=== PATIENT | male | born 1935 | race Hispanic/Latino ===

== ENCOUNTER → 2019-05-10 | Outpatient (CLI) | payer OTHER ==
[~2019-05-10] MED LIST: ALLO100T PO; DIATR MEGLU/DIATRIZOATE SODIUM 30 ML BOTTLE ONE; GLIP5TAB11 PO; LEVO500T89 PO; SITA100T12 PO
== END | disposition home or self-care (01) ==
LOC: RAH 10:05
PROVIDERS: ATTEND Internal Medicine Gastroenterology
DX: K94.20 Gastrostomy complication, unspecified (principal)
CPT/HCPCS: 74018; Q9963

== ENCOUNTER 2025-09-06 18:05 | Emergency (ER) | payer OTHER, MEDICARE ==
[~2025-09-06] VITALS: Ht 182.9 cm; Wt 71.2 kg
[~2025-09-06 18:05] MED LIST changes: -DIATR MEGLU/DIATRIZOATE SODIUM 30 ML BOTTLE ONE; -GLIP5TAB11 PO; +GLIP5TAB15 PO; +LEVO-70 PO; -LEVO500T89 PO
--- NOTE | 2025-09-06 18:14 | ERN ---
ED Note History of Present Illness Stated Complaint: COUGH AND FEVER Chief Complaint: Cough Time Seen by MD: 18:09 Dictation: PATIENT IS AN 89-YEAR-OLD MALE HERE WITH HIS GRANDDAUGHTER WITH COMPLAINTS OF FEVER CHILLS DRY COUGH AND MILD SOB FOR THE LAST 3-4 DAYS. NO NAUSEA VOMITING NO DIARRHEA NO LOSS OF TASTE OR SMELL. PATIENT WAS TAKEN TO A LOCAL URGENT CARE AND WAS DIAGNOSED WITH INFLUENZA TWO DAYS AGO AND WAS PRESCRIBED BROMFED ONLY NO TAMIFLU WAS PRESCRIBED. PATIENT IS HERE NOW FOR A BETTER OPINION. Allergies: Coded Allergies: No Known Drug Allergies (Verified Allergy, Unknown, 07/18/18) Home Meds Reported Medications Allopurinol (Allopurinol) 100 Mg Tablet, 100 MG PO DAILY, TAB 07/18/18 Levofloxacin (Levofloxacin) 500 Mg Tablet, 500 MG PO DAILY, TAB 07/18/18 Glipizide (Glipizide) 5 Mg Tablet, 5 MG PO BIDAC, TAB 07/18/18 Sitagliptin Phosphate (Januvia) 100 Mg Tablet, 100 MG PO DAILY, TAB 07/18/18 Past Medical History RN Note Reviewed/Agreed w/PFSH: Yes Review of System Dictation CONSTITUTIONAL: NEGATIVE EXCEPT FOR HPI FEVER CHILLS HEAD/FACE: NEGATIVE EXCEPT FOR HPI EENT: NEGATIVE EXCEPT FOR HPI RESPIRATORY: NEGATIVE EXCEPT FOR HPI COUGH/SOB GASTROINTESTINAL/ABDOMINAL: NEGATIVE EXCEPT FOR HPI GENITOURINARY: NEGATIVE EXCEPT FOR HPI MUSCULOSKELETAL: NEGATIVE EXCEPT FOR HPI INTEGUMENTARY: NEGATIVE EXCEPT FOR HPI NEUROLOGICAL/PSYCH: NEGATIVE EXCEPT FOR HPI HEMATOLOGIC/LYMPHATIC: NEGATIVE EXCEPT FOR HPI ALL SYSTEMS NEGATIVE, EXCEPT NOTED ABOVE. 13 POINT REVIEW OF SYSTEMS ASSESSED AND ALL NEGATIVE EXCEPT FOR ABOVE. Initial Vital Sign VS Vital Signs Date Time Temp Pulse Resp B/P (MAP) Pulse Ox O2 Delivery O2 Flow Rate FiO2 09/06/25 18:09 99.7 93 20 154/58 94 Room Air 09/06/25 19:04 0 21 Physical Exam Dictation VITAL SIGNS REVIEWED GENERAL APPEARANCE: ALERT, ORIENTED X 3, N MILD ACUTE DISTRESS, WELL DEVELOPED, NOURISHED. HEAD AND FACE: NON-TRAUMATIC. EYES: PERRL, PINK CONJUNCTIVAS, EYELID NO TRAUMA, ANTERIOR CHAMBER WITH ARCUS SENILIS. EARS: PINNAS INTACT AND NO SIGNS OF TRAUMA OR ERYTHEMA EAR CANALS CLEAR AND NO DISCHARGE TM NO ERYTHEMA NOSE: NO DISCHARGE, NO BLEEDING. OROPHARYNX: MOUTH NORMAL, TONGUE PINK, PHARYNX CLEAR,NO ERYTHEMA, TONSILS NO EXUDATES, NO ABSCESSES NOTED, MUCOUS MEMBRANE MOIST NECK: SUPPLE, NON-TENDER, NO THYROMEGALY, NO MASSES, NO JVD, NO BRUITS BREAST:DEFERRED CHEST:NO TENDERNESS, NO CREPITUS, NO PARADOXICAL MOVEMENT, NO RETRACTIONS LUNGS:CLEAR, WELL-VENTILATED, SYMMETRIC, NO RALES, NO WHEEZING, NO RHONCHI, NO STRIDOR, GOOD BREATH SOUNDS BILATERALLY NO TACHYPNEA OR RETRACTIONS. DRY COUGH NOTED HEART: REGULAR RATE, REGULAR RHYTHM, NO MURMUR, NO GALLOPS VASCULAR: NO PERIPHERAL EDEMA, ABDOMEN: SOFT, POSITIVE BOWEL SOUNDS, NONDISTENDED, NO GUARDING, NONTENDER, NO REBOUND, NO MASSES NO HEPATOMEGALY, NO SPLENOMEGALY, NO WHITTEN'S SIGN, NO HERNIAS. RECTAL: DEFERRED GENITAL: DEFERRED NEUROLOGICAL: NORMAL SPEECH, MOTOR FUNCTION INTACT, SENSORY FUNCTION INTACT MUSCULOSKELETAL: NECK NONTENDER, FULL RANGE OF MOTION, BACK NONTENDER, FULL RANGE OF MOTION, EXTREMITIES: NONTENDER, FULL RANGE OF MOTION SKIN: COLOR PINK, DRY, NO TURGOR, NO RASH, NO LACERATIONS, NO ABRASIONS, NO CONTUSIONS. LYMPHATIC: DEFERRED Results (Laboratory/Radiology) Laboratory/Radiology Laboratory Tests Test 09/06/25 18:27 09/06/25 18:49 White Blood Count 8.6 K/uL (4.8-10.8) Red Blood Count 4.43 MIL/uL (4.50-6.20) L Hemoglobin 13.0 g/dL (14.0-18.0) L Hematocrit 38.4 % (42-54) L Mean Corpuscular Volume 86.7 fL (79-99) Mean Corpuscular Hemoglobin 29.3 pg (27.0-33.0) Mean Corpuscular Hemoglobin Concent 33.9 g/dL (32.0-36.0) Red Cell Distribution Width 13.9 % (11.0-15.5) Platelet Count 168 K/uL (130-400) Mean Platelet Volume 10.2 fL (7.5-10.5) Immature Granulocyte % (Auto) 0.9 % (0-1) Neutrophils (%) (Auto) 73.7 % (40.0-77.0) Lymphocytes (%) (Auto) 11.5 % (21.0-51.0) L Monocytes (%) (Auto) 12.9 % (3.0-13.0) Eosinophils (%) (Auto) 0.8 % (0.0-8.0) Basophils (%) (Auto) 0.2 % (0.0-5.0) Neutrophils # (Auto) 6.3 K/uL (1.8-7.7) Lymphocytes # (Auto) 1.0 K/uL (1.0-4.8) Monocytes # (Auto) 1.1 K/uL (0.1-1.0) H Eosinophils # (Auto) 0.07 K/uL (0.00-0.70) Basophils # (Auto) 0.02 K/uL (0.00-0.20) Absolute Immature Granulocyte (auto 0.08 K/uL (0-1) Nucleated Red Blood Cells 0.0 % (0.0-0.19) Sodium Level 138 mmol/L (136-145) Potassium Level 4.0 mmol/L (3.5-5.1) Chloride Level 102 mmol/L (101-111) Carbon Dioxide Level 24 mmol/L (21-32) Blood Urea Nitrogen 12 mg/dL (7-18) Creatinine 0.9 mg/dL (0.5-1.3) Glomerular Filtration Rate Calc 82 mL/min (>90) Random Glucose 175 mg/dL (70-105) H Lactic Acid Level 2.0 mmol/L (0.8-2.5) Total Calcium 8.9 mg/dL (8.5-10.1) Troponin I High Sensitivity 15 ng/L (4-75) B-Type Natriuretic Peptide 586 pg/mL (0-100) H Influenza Type A Antigen Negative For Type A Influenza Type B Antigen Negative For Type B SARS-CoV-2 Antigen (Rapid) PRESUMPTIVE NEGATIVE 1915/CHEST X-RAY NEGATIVE Labs Reviewed?: Yes EKG Comment: 1820/EKG SINUS RHYTHM/HEART RATE 92/AXIS NORMAL/NONSPECIFIC CHANGES ANTEROLATERAL LEADS/CHRONIC ED Course ED Course Orders Procedure Category Date Status Time Blood Cult MICKEY 09/06/25 In Process 18:12 Lactic Acid LAB 09/06/25 Complete 18:12 B-Type Natriuretic LAB 09/06/25 Complete Peptide 18:12 Covid19 (Sars Antigen LAB 09/06/25 Complete Rapid) 18:12 Influenza Type A & B, LAB 09/06/25 Complete Rapid 18:12 Cbc With Differential LAB 09/06/25 Complete 18:12 Troponin I High LAB 09/06/25 Complete Sensitivity 18:12 12 Lead Ekg Tracing- EKG 09/06/25 Resulted Technical 18:12 Chest 1vw RAD 09/06/25 Resulted 18:12 Basic Metabolic Panel LAB 09/06/25 Complete 18:12 Dexamethasone 4mg/Ml PHA 09/06/25 Complete 1ml Vial (Dexametha 19:30 Furosemide 100mg Vial PHA 09/06/25 Complete (Lasix 100mg Vial) 19:30 Current Medications Medications (Trade) Dose Ordered Sig/James Route PRN Reason Start Time Stop Time Status Last Admin Dose Admin Dexamethasone Sodium Phosphate (dexaMETHasone 4MG/ML 1ML VIAL) 8 mg ONCE ONCE IVP 09/06/25 19:30 09/06/25 19:31 DC 09/06/25 19:31 Furosemide (LASix 100MG VIAL) 80 mg ONCE ONCE IVP 09/06/25 19:30 09/06/25 19:33 DC 09/06/25 19:34 Vital Signs Date Time Temp Pulse Resp B/P (MAP) Pulse Ox O2 Delivery O2 Flow Rate FiO2 09/06/25 19:32 99.5 82 18 155/62 98 Room Air* 0 21 09/06/25 19:04 99.7 86 16 160/75 94 Room Air* 0 21 09/06/25 18:09 99.7 93 20 154/58 94 Room Air 2040/SPOKE WITH PATIENT IN HIS GRANDDAUGHTER AT LENGTH REGARDING CLINICAL FINDINGS. THEY ARE AWARE THAT ALL SWABS ARE NEGATIVE CHEST X-RAY CLEAR HE DOES HAVE AN ABNORMAL EKG HOWEVER THERE WAS NO TROPONIN ELEVATION. BNP IS MILDLY ELEVATED ELEVATED LESS THAN 600 AND WE WILL BE GIVEN LASIX. HIS BILATERAL BREATH SOUNDS ARE CLEAR HE IS NOT TACHYPNEIC AND HE WISHES TO GO HOME. HEART Score Response (Comments) Value EKG: Repolarization changes 1 Age: > 65yrs (+2) 2 Risk Factors: 1-2 risk factors (+1) 1 Initial Troponin: Normal limit (0) 0 Total 4 Medical Decision Making MDM MDM: DIFFERENTIAL DIAGNOSIS: ACS/AMI/FLU/COVID/STREP/VIRAL INFECTION/ELECTROLYTE IMBALANCE/DEHYDRATION/CHF RATIONALE: TESTS CONSIDERED AND ORDERED SECONDARY TO SHARED DECISION MAKING INCLUDE: EKG/LABS/RADIOLOGY PREVIOUS OUTSIDE RECORDS REVIEWED: OLD ER VISITS. RISK OF COMPLICATION AND/OR MORBIDITY OR MORTALITY OF PATIENT MANAGEMENT: NONE MEDICATIONS-PER MEDICATION RECONCILIATION NEED FOR HOSPITALIZATION: PATIENT DOES NOT MEET CRITERIA FOR HOSPITALIZATION. NONE NEED FOR EMERGENCY MAJOR/MINOR SURGERY: NO THERE ARE NO SOCIAL CONCERNS WITH THIS PATIENT. PRESCRIPTION DRUG MANAGEMENT LASIX/ALBUTEROL PRESCRIPTIONS WILL INCLUDE SYMPTOMATIC CARE PATIENT'S PRIOR EXTERNAL MEDICAL RECORDS FROM OTHER ER VISITS WERE REVIEWED BY ME INDICATED. PRIOR TESTING AND RESULTS FROM PREVIOUS VISITS WERE REVIEWED. PRIOR TESTS WERE TAKEN INTO ACCOUNT WITH MEDICAL DECISION MAKING AND RESOURCE UTILIZATION, INDEPENDENT HISTORIAN/HISTORIANS WERE USED TO OBTAIN COMPLETE MEDICAL HISTORY. I INDEPENDENTLY INTERPRETED THE TEST THAT WERE PERFORMED, RESULTS WERE REVIEWED BY ME AND CONSIDERED FINDINGS ON RADIOLOGY IF ORDERED. MEDICAL MANAGEMENT AND EXAMINATION INTERPRETATION DISCUSSIONS WERE HAD BY ME WITH OTHER QUALIFIED HEALTHCARE PROFESSIONALS INDICATED FOR THE PATIENT'S CARE. DX & DISP Disposition: Discharge Departure Impression: Primary Impression: CHF exacerbation Additional Impressions: Cough, Diabetes mellitus with hyperglycemia Condition: Stable Scripts Albuterol Sulfate (Ventolin Hfa/Proventil Hfa/Proair Hfa) 90 Mcg Puff 2 PUFF IH Q4H for WHEEZING, #1 INHALER 0 Refills Prov: EHSAN FALL TABLEAU LEAD 09/06/25 Furosemide (Furosemide) 40 Mg Tablet 1 TAB PO DAILY for 5 Days, #5 TAB 0 Refills Prov: EHSAN FALL TABLEAU LEAD 09/06/25 Additional Instructions: FOLLOW-UP WITH PRIMARY CARE PROVIDER IN 1 TO 2 DAYS. TAKE MEDICATIONS DIRECTED HERE IN THE EMERGENCY ROOM. OKAY TO CONTINUE HOME MEDICATIONS UNLESS OTHERWISE DISCUSSED DURING YOUR VISIT IN THE EMERGENCY ROOM TODAY. RETURN TO YOUR NEAREST EMERGENCY ROOM IF SYMPTOMS WORSEN OR IF THERE IS NO IMPROVEMENT. CALL 911 IF YOU NEED IMMEDIATE ASSISTANCE. TAKE TYLENOL OR MOTRIN [id number] NEEDED AND IF NO CONTRAINDICATIONS ARE PRESENT. INCREASE ORAL HYDRATION. A WOUND CULTURE OR URINE CULTURE WAS ORDERED HERE IN THE EMERGENCY ROOM DEPARTMENT PLEASE FOLLOW-UP WITH PRIMARY CARE PROVIDER AND ADVISE THEM TO GET REPEAT PORTS FROM OUR FACILITY. IF YOU HAD ANY ZECHARIAH WRAP/SPLINTS THAT WERE APPLIED HERE, PLEASE DO NOT REMOVE THEM UNTIL YOU SEE YOUR PRIMARY CARE OR SPECIALTY. CONTINUE BROMFED AT HOME. TAKE LASIX DIRECTED DAILY FOR THE NEXT FIVE DAYS STARTING TOMORROW. USE ALBUTEROL INHALER EVERY 4 HOURS WHILE AWAKE FOR THE NEXT TWO DAYS. SEE YOUR PRIMARY CARE DOCTOR NEXT TUESDAY OR TUESDAY FOR FOLLOW UP AND MANAGEMENT. Referrals: BLANCA LIMA MD (PCP) Time of Disposition: 20:40 I have reviewed the case, and I agree with, Diagnosis and Plan EHSAN FALL TABLEAU LEAD Sep 06, 2025 18:14
--- NOTE | 2025-09-06 18:18 | EKG ---
[facility] Test Date: 2025-09-06 Test Time: 18:13:13 Pat Name: FRANCY NAJERA Department: ED Room: Gender: M Setter Out: [id number] : 1935 Requested By: EHSAN FALL Order Number: [id number] Reading MD: Rudi Kinney Measurements Intervals [place] Rate: 92 P: 58 NV: 76 QRS: 26 QRSD: 89 T: 72 QT: 365 QTc: 452 Interpretive Statements Sinus rhythm Anteroseptal infarct, old Compared to ECG 07/18/2018 07:51:00 No significant changes Electronically Signed On 09-06-2025 18:31:08 CDT by Rudi Kinney Please click the below link to view image of tracing.
[2025-09-06 18:34] LABS: IMMATURE GRANULOCYTE ABSOLUTE 0.08 K/uL (0-1); NUCLEATED RED BLOOD CELLS 0.0 % (0.0-0.19); PLATELET COUNT (AUTO) 168 K/uL (130-400); RED BLOOD CELL COUNT(AUTO) 4.43 MIL/uL (4.50-6.20); RED CELL DISTRIBUTION WIDTH 13.9 % (11.0-15.5); WHITE BLOOD COUNT (AUTO) 8.6 K/uL (4.8-10.8)
[2025-09-06 18:46] LABS: CREATININE 0.9 mg/dL (0.5-1.3); GLOMERULAR FILTR. RATE CALC 82.0 mL/min (>90); GLUCOSE,RANDOM 175.0 mg/dL (70-105); SODIUM SERUM 138.0 mmol/L (136-145); UREA NITROGEN, BLOOD 12.0 mg/dL (7-18)
[2025-09-06 19:17] LABS: COVID19 (SARS ANTIGEN RAPID) PRESUMPTIVE NEGATIVE (NEGATIVE)
[2025-09-06 19:18] LABS: INFLUENZA TYPE A Negative For Type A (NEGATIVE); INFLUENZA TYPE B Negative For Type B (NEGATIVE)
[2025-09-06] MEDS: furoSEMIDE 100MG VIAL 10 MG/ML VIAL IVP ONE (19:34)
--- NOTE | 2025-09-06 20:09 | HMCIMG ---
EXAM: CR Chest, 1 View. CLINICAL HISTORY: SOB/COUGH COMPARISON: None provided. FINDINGS: Right Mediport catheter tip projects at the distal SVC. LUNGS: There is no mass, infiltrate, or acute pulmonary abnormality. PLEURAL SPACES: No pleural effusion or pneumothorax. MEDIASTINUM: The cardiomediastinal silhouette is within normal limits. BONES: No acute osseous abnormality. IMPRESSION: No acute cardiopulmonary pathology is evident. /[place]
[2025-09-06] MEDS ORDERED: ALBUHFA IH (20:40)
[2025-09-06] MEDS ORDERED: FURO40TA5 PO (20:40)
[2025-09-06 21:00] VITALS: BP 145/60; PULSE 80; RESP 18; TEMP 99.2; O2SAT 98
== END 2025-09-06 21:01 | disposition home or self-care (01) ==
LOC: EDH 18:05
DX: I11.0 Hypertensive heart disease with heart failure (principal); I50.9 Heart failure, unspecified; E11.65 Type 2 diabetes mellitus with hyperglycemia; Z20.822 Contact with and (suspected) exposure to COVID-19; Z79.899 Other long term (current) drug therapy; Z79.84 Long term (current) use of oral hypoglycemic drugs
CPT/HCPCS: 99285; 96374; 71045; 96375; 87426; 84484; 80048; 83880; 85025; 87040 ×2; 87804 ×2; 83605; 36415; 93005; J1100; J1938

== ENCOUNTER 2025-09-08 07:32 | Inpatient (IN) | payer OTHER, MEDICARE ==
[2025-09-08] VITALS (10 sets, daily range): BP systolic 127–143; BP diastolic 58–61; PULSE 66–73; RESP 18–20; TEMP 97.9–98.6; O2SAT 92–100
[~2025-09-08] VITALS: Ht 182.9 cm; Wt 79.4 kg
[~2025-09-08 07:32] MED LIST changes: +ALBUHFA IH; +FURO40TA5 PO
--- NOTE | 2025-09-08 07:55 | ERN ---
General Chief Complaint: Shortness of Breath Stated Complaint: SOB Time Seen by MD: 07:35 History of Present Illness Initial Comments 89-year-old male who has had upper respiratory tract symptoms for the last 3-4 days along with decreased appetite. He has been seen at an urgent care and here at this hospital emergency room for nasal swabs were negative and chest x-ray was equivocal for infiltrates. During both of those visits he was given medications to help with his symptoms, but no antibiotics. Patient comes in today with increasing work of breathing increasing difficulty breathing feeling like he needs to cough but can not clear his airways. He also has increased oxygenation requirements. Does not use oxygen at home and he is on 2 L of oxygen now to get adequate oxygen saturation. Allergies: Coded Allergies: No Known Drug Allergies (Verified Allergy, Unknown, 07/18/18) Home Meds Active Scripts Albuterol Sulfate (Ventolin Hfa/Proventil Hfa/Proair Hfa) 90 Mcg Puff, 2 PUFF IH Q4H for WHEEZING, #1 INHALER 0 Refills Prov:EHSAN FALL HAIR SPRING WINDER 09/06/25 Furosemide (Furosemide) 40 Mg Tablet, 1 TAB PO DAILY for 5 Days, #5 TAB 0 Refills Prov:EHSAN FALL HAIR SPRING WINDER 09/06/25 Reported Medications Allopurinol (Allopurinol) 100 Mg Tablet, 100 MG PO DAILY, TAB 07/18/18 Levofloxacin (Levofloxacin) 500 Mg Tablet, 500 MG PO DAILY, TAB 07/18/18 Glipizide (Glipizide) 5 Mg Tablet, 5 MG PO BIDAC, TAB 07/18/18 Sitagliptin Phosphate (Januvia) 100 Mg Tablet, 100 MG PO DAILY, TAB 07/18/18 Past Medical History Past Medical History: Diabetes-Type II Past Surgical History: Cholecystectomy Constitutional: (-) chills, (-) diaphoresis, (-) fever, (-) malaise, (-) weakness, (-) other documentation EENTM: (-) eye pain, (-) blurred vision, (-) tearing, (-) double vision, (-) ear pain, (-) ear discharge, (-) nose pain, (-) nose congestion, (-) throat pain, (-) Throat swelling, (-) mouth pain, (-) tooth pain, (-) mouth swelling, (-) other documentation Respiratory: (+) cough, (+) short of breath Cardiovascular: (+) chest pain Gastrointestinal/Abdominal: (-) nausea, (-) vomiting, (-) diarrhea, (-) abd ominal pain, (-) abdominal distention, (-) constipation, (-) rectal bleeding, (- ) dark stool/melena, (-) other documentation Genitourinary: (-) penile discharge, (-) dysuria, (-) frequency, (-) hematuria, (-) pain, (-) other documentation Musculoskeletal: (-) Neck pain, (-) back pain, (-) Flank Pain, (-) joint pain, (-) joint swelling, (-) muscle pain, (-) muscle stiffness, (-) gout, (-) other documentation Physical Exam Orientation: (+) alert Head/Face Trauma: No Eye: bilateral eye normal inspection, bilateral eye PERRL, bilateral eye EOMI Ear, Nose, Throat: (+) hearing grossly normal, (+) normal ENT inspection Neck: (+) normal inspection, (+) supple, (+) full range of motion Respiratory: (+) chest non-tender, (+) lungs clear, (+) well ventilated Heart: (+) regular, (+) systolic murmur Vascular: (+) no edema, (+) normal peripheral pulse Gastrointestinal: (+) soft, (+) non-tender, (+) bowel sound present Results Laboratory and Microbiology Lab and Micro Result Laboratory Tests Test 09/08/25 07:44 09/08/25 08:33 White Blood Count 15.7 K/uL (4.8-10.8) H Red Blood Count 4.51 MIL/uL (4.50-6.20) Hemoglobin 13.2 g/dL (14.0-18.0) L Hematocrit 38.6 % (42-54) L Mean Corpuscular Volume 85.6 fL (79-99) Mean Corpuscular Hemoglobin 29.3 pg (27.0-33.0) Mean Corpuscular Hemoglobin Concent 34.2 g/dL (32.0-36.0) Red Cell Distribution Width 13.8 % (11.0-15.5) Platelet Count 231 K/uL (130-400) # Mean Platelet Volume 10.2 fL (7.5-10.5) Immature Granulocyte % (Auto) 0.7 % (0-1) Neutrophils (%) (Auto) 83.1 % (40.0-77.0) H Lymphocytes (%) (Auto) 7.1 % (21.0-51.0) L Monocytes (%) (Auto) 8.7 % (3.0-13.0) Eosinophils (%) (Auto) 0.1 % (0.0-8.0) Basophils (%) (Auto) 0.3 % (0.0-5.0) Neutrophils # (Auto) 13.1 K/uL (1.8-7.7) H Lymphocytes # (Auto) 1.1 K/uL (1.0-4.8) Monocytes # (Auto) 1.4 K/uL (0.1-1.0) H Eosinophils # (Auto) 0.01 K/uL (0.00-0.70) Basophils # (Auto) 0.04 K/uL (0.00-0.20) Absolute Immature Granulocyte (auto 0.11 K/uL (0-1) Nucleated Red Blood Cells 0.0 % (0.0-0.19) White Cell Morphology Comment See comments Sodium Level 137 mmol/L (136-145) Potassium Level 3.6 mmol/L (3.5-5.1) Chloride Level 99 mmol/L (101-111) L Carbon Dioxide Level 27 mmol/L (21-32) Blood Urea Nitrogen 22 mg/dL (7-18) H Creatinine 1.3 mg/dL (0.5-1.3) Glomerular Filtration Rate Calc 53 mL/min (>90) Random Glucose 232 mg/dL (70-105) H Total Calcium 8.7 mg/dL (8.5-10.1) Procalcitonin 0.22 ng/mL (0.05-0.5) Influenza Type A Antigen Negative For Type A Influenza Type B Antigen Negative For Type B SARS-CoV-2 Antigen (Rapid) PRESUMPTIVE NEGATIVE Group A Streptococcus Rapid negative (NEGATIVE) Blood Gas Specimen Type Arterial Arterial Blood pH 7.486 (7.350-7.450) Arterial Blood Partial Pressure CO2 32 mmHg (35-48) L Arterial Blood Partial Pressure O2 51.8 mmHg (83.0-108.0) L Arterial Blood HCO3 23.8 mmol/L (21.0-28.0) Arterial Blood Oxygen Saturation 90.2 % (94.0-98.0) L Arterial Blood Base Excess 1.0 mmol/L (-2.0-3.0) Hemoglobin (Blood Gas) 13.1 g/dL (13.5-17.5) L Sodium (Blood Gas) 136 MMOL/L (136-145) Bedside Potassium (Blood Gas) 3.8 MMOL/L (3.4-4.5) Bedside Chloride (Blood Gas) 101 MMOL/L (98-107) Bedside Glucose (Blood Gas) 250 MG/DL (65-95) H Bedside Ionized Calcium (Blood Gas) 1.10 MMOL/L (1.15-1.33) L Bedside Lactic Acid (Blood Gas) 1.71 MMOL/L (0.36-0.75) H Blood Gas Temperature 37.0 CELSIUS (35.5-37.0) Blood Gas Flow-by 2.00 L/min (0.00-15.00) Blood Gas Vent Mode 2L NC (ROOM AIR) FiO2 28.0 % Blood Gas Specimen Comment RB MDM DR RICCI took over care at 0800. CC: Cough congestion Historian: Patient Comorbidities: Advanced age Limitations by social determinants of health: None Differential diagnosis: Pneumonia, hypoxia, fluid overload, viral URI, other Vital signs: Temp 99.7 pulse 110 respiratory rate 24. Blood pressure stable. 91% on room air. EKG: Sinus rhythm, rate 110, normal axis, good R-wave progression, intervals are stable no STEMI. Independently interpreted by me. Labs: leukocytosis, 15 K, left shift, no Bands. Chemistry shows glucose 232 otherwise unremarkable. Serology negative. Blood gas shows hypoxia PaO2 of 51. CO2 is stable. Patient placed on 3 L nasal cannula for respiratory failure with hypoxia. Chest x-ray per my independent interpretation shows no cardiomegaly pleural effusions or obvious focal infiltrates. Symptoms most consistent with a community-acquired pneumonia as well as respiratory failure with hypoxia. Patient received lactated Ringer's in the ER, azithromycin, Rocephin. On oxygen. Consultation: Hospitalist for admission MDM: Differential diagnosis: Flu, COVID, strep, upper respiratory tract infection, bronchitis Rationale: Tests considered and ordered secondary to shared decision making include: Previous outside records reviewed: Old ER visits. Risk of complication and/or morbidity or mortality of patient management: None Medications-Per medication reconciliation Need for hospitalization: Patient does meet criteria for hospitalization. Need for emergency major/minor surgery: No There are no social concerns with this patient. Prescription drug management Prescriptions will include symptomatic care Patient's prior external medical records from other ER visits were reviewed by me as indicated. Prior testing and results from previous visits were reviewed. Prior tests were taken into account with medical decision making and resource utilization, independent historian/historians were used to obtain complete medical history. I independently interpreted the test that were performed, results were reviewed by me and considered findings on radiology if ordered. ED Course Orders Procedure Category Date Status Time 12 Lead Ekg Tracing- EKG 09/08/25 Complete Technical 07:50 Basic Metabolic Panel LAB 09/08/25 Complete 07:50 Cbc With Differential LAB 09/08/25 Complete 07:50 Covid19 (Sars Antigen LAB 09/08/25 Complete Rapid) 07:50 Influenza Type A & B, LAB 09/08/25 Complete Rapid 07:50 Rapid (Group A Strep) LAB 09/08/25 Complete 07:50 Procalcitonin LAB 09/08/25 Complete 07:50 Chest 1vw RAD 09/08/25 Taken 07:50 Urinalysis Profile LAB 09/08/25 Logged 07:51 Azithromycin 500mg+Ns PHA 09/08/25 In Process 250ml (Azithromyci 08:30 Ceftriaxone 1g Vial PHA 09/08/25 In Process (Rocephine 1g Inj) 08:30 Arterial Blood Gas + RT 09/08/25 Transmitted 08:10 Lactated Ringers PHA 09/08/25 In Process 1000ml (Lactated 08:30 Acetaminophen 500mg PHA 09/08/25 Complete Tab (Tylenol 500mg T 08:30 Troponin I High LAB 09/08/25 In Process Sensitivity 08:30 B-Type Natriuretic LAB 09/08/25 In Process Peptide 08:30 Arterial Blood Gas LAB 09/08/25 Complete Arterial + 08:33 Current Medications Medications (Trade) Dose Ordered Sig/James Route PRN Reason Start Time Stop Time Status Last Admin Dose Admin Acetaminophen (TYLenol 500MG TAB) 1,000 mg ONCE ONCE PO 09/08/25 08:30 09/08/25 08:31 DC 09/08/25 08:44 Azithromycin 250 ml @ 250 mls/hr Q24H IVPB 09/08/25 08:30 09/18/25 08:29 09/08/25 08:29 Ceftriaxone Sodium (ROCEphine 1G INJ) 1 gm Q24H IVPB 09/08/25 08:30 09/18/25 08:29 09/08/25 08:29 Lactated Ringer's 1,000 ml @ 125 mls/hr ONCE ONCE IV 09/08/25 08:30 09/08/25 16:29 09/08/25 08:44 Vital Signs Date Time Temp Pulse Resp B/P (MAP) Pulse Ox O2 Delivery O2 Flow Rate FiO2 09/08/25 08:31 99.5 96 20 116/55 95 Nasal Cannula* 2 28 09/08/25 07:34 99.7 110 24 118/58 93 Room Air 0 DX & DISP Disposition: Inpatient Departure Impression: Primary Impression: Respiratory failure with hypoxia Additional Impression: Community acquired pneumonia Critical Time: 30 minutes (Critical Care Procedure NoteAuthorized and Performed by: meTotal critical care time: Approximately 36 minutesDue to a high probability of clinically significant, life threatening deterioration, the patient required my highest level of preparedness to intervene emergently and I personally spent this critical care time directly and personally managing the patient. This critical care time included obtaining a history; examining the patient; pulse oximetry; ordering and review of studies; arranging urgent treatment with development of a management plan; evaluation of patient's response to treatment; frequent reassessment; and, discussions with other providers.This critical care time was performed to assess and manage the high probability of imminent, life-threatening deterioration that could result in multi-organ failure. It was exclusive of separately billable procedures and treating other patients and teaching time.Please see MDM section and the rest of the note for further information on patient assessment and treatment.) Condition: Stable Referrals: BLANCA LIMA MD (PCP) AZRA BEAN MD Sep 08, 2025 07:55 MILLICENT RICCI DO Sep 08, 2025 08:53
[2025-09-08 08:01] LABS: IMMATURE GRANULOCYTE ABSOLUTE 0.11 K/uL (0-1); NUCLEATED RED BLOOD CELLS 0.0 % (0.0-0.19); PLATELET COUNT (AUTO) 231 K/uL (130-400); RED BLOOD CELL COUNT(AUTO) 4.51 MIL/uL (4.50-6.20); RED CELL DISTRIBUTION WIDTH 13.8 % (11.0-15.5); WHITE BLOOD COUNT (AUTO) 15.7 K/uL (4.8-10.8)
--- NOTE | 2025-09-08 08:05 | EKG ---
[facility] Test Date: 2025-09-08 Test Time: 07:33:27 Pat Name: FRANCY NAJERA Department: EDH Room: ED Gender: M Labor Service Representative: [id number] : 1935 Requested By: AZRA BEAN Order Number: [id number] Reading MD: Rudi Kinney Measurements Intervals [place] Rate: 110 P: 57 UT: 192 QRS: -3 QRSD: 93 T: 68 QT: 340 QTc: 461 Interpretive Statements Sinus tachycardia Probable anteroseptal infarct, old Compared to ECG 09/06/2025 18:13:13 Sinus rhythm no longer present Myocardial infarct finding still present Electronically Signed On 09-08-2025 12:50:53 CDT by Ruid Kinney Please click the below link to view image of tracing.
[2025-09-08 08:07] LABS: CREATININE 1.3 mg/dL (0.5-1.3); GLOMERULAR FILTR. RATE CALC 53.0 mL/min (>90); GLUCOSE,RANDOM 232.0 mg/dL (70-105); SODIUM SERUM 137.0 mmol/L (136-145); UREA NITROGEN, BLOOD 22.0 mg/dL (7-18)
[2025-09-08 08:22] LABS: RAPID GROUP A STREP negative (NEGATIVE)
[2025-09-08] MEDS: AZITHROMYCIN 500MG+NS 250ML 250 ML IVPB SCH (08:29)
[2025-09-08 08:32] LABS: COVID19 (SARS ANTIGEN RAPID) PRESUMPTIVE NEGATIVE (NEGATIVE); INFLUENZA TYPE A Negative For Type A (NEGATIVE); INFLUENZA TYPE B Negative For Type B (NEGATIVE)
[2025-09-08 08:35] LABS: ABG BASE EXCESS 1.0 mmol/L (-2.0-3.0); ABG HCO3 23.8 mmol/L (21.0-28.0); ABG OXYGEN SATURATION 90.2 % (94.0-98.0); ABG PCO2 32 mmHg (35-48); ABG PH 7.486 (7.350-7.450); CARBON MONOXIDE 0.3 % (0.5-1.5); DEVICE COMMENT RB; PO2, ARTERIAL BG 51.8 mmHg (83.0-108.0); TEMPERATURE, CELSIUS BG 37.0 CELSIUS (35.5-37.0); VENT MODE, BG 2L NC (ROOM AIR)
[2025-09-08] MEDS: LACTATED RINGERS 1000ML 1,000 ML IV ONE (08:44)
--- NOTE | 2025-09-08 09:22 | HMCIMG ---
EXAM: CR Chest, 1 View. CLINICAL HISTORY: SOB COMPARISON: 09/06/2025 FINDINGS: Again noted is a right sided port with its tip in the superior vena cava. LUNGS: There is no mass, infiltrate, or acute pulmonary abnormality. PLEURAL SPACES: No pleural effusion or pneumothorax. MEDIASTINUM: The cardiomediastinal silhouette is within normal limits. BONES: No acute osseous abnormality. IMPRESSION: No acute cardiopulmonary pathology is evident. /[place]
[2025-09-08] MEDS ORDERED: LACTULOSE 20 GM/30 ML UDCUP PO PRN (09:30)
[2025-09-08] MEDS ORDERED: NITROGLYCERIN 0.4 MG SL TAB SL PRN (09:30)
[2025-09-08] MEDS ORDERED: ARTIFICAL TEARS SOL 15 ML OP PRN (09:30)
[2025-09-08] MEDS ORDERED: BENZOCAINE/MENTH/CETYLPYRD CL 1 EACH LOZENGE MM PRN ×2 (09:30→22:30)
[2025-09-08] MEDS ORDERED: LOPERAMIDE HCL 2 MG CAP PO PRN (09:30)
[2025-09-08] MEDS ORDERED: MAG/ALUM/SIMETH 30 ML UDCUP PO PRN (09:30)
[2025-09-08] MEDS ORDERED: guaiFENesin-DM 200/20MG 10ML PO PRN (09:30)
[2025-09-08] MEDS ORDERED: GLIP10TA16 PO (12:11)
[2025-09-08] MEDS ORDERED: OMEG100033 PO (12:11)
[2025-09-08] MEDS ORDERED: ATOR10TA69 PO (12:11)
[2025-09-08] MEDS ORDERED: METF-446 PO (12:12)
[2025-09-08] MEDS ORDERED: MULT-264 PO (12:13)
[2025-09-08] MEDS ORDERED: CHOL200012 PO (12:15)
--- NOTE | 2025-09-08 12:50 | NUR ---
PATIENT ARRIVED TO UNIT Patient transported via bed to unit. On room air. Denies pain. Reports that shortness of breath/difficulty breathing has improved since reporting to the hospital. Oriented to room and unit. Plan of care reviewed with patient and granddaughter (at bedside)
[2025-09-08 17:21] LABS: ADD UA MICROSCOPIC YES; APPEARANCE,URINE CLEAR (CLEAR); GLUCOSE, URINE (UA) 70 mg/dL (NEGATIVE); LEUKOCYTE ESTERASE ,URINE NEGATIVE Leu/uL (NEGATIVE); NITRATE,URINE NEGATIVE (NEGATIVE); OCCULT BLOOD,URINE NEGATIVE (NEGATIVE)
[2025-09-08 17:28] LABS: SQUAMOUS EPITHELIAL CELL,UR RARE /HPF (0-2)
--- NOTE | 2025-09-08 18:05 | HP ---
[facility] HISTORY & PHYSICAL Date Patient Seen: Sep 08, 2025 Time of Visit: 17:40 Supervising Physician: Dr. Aamir Ramirez Primary Care Physician: Dr. Iglesia Ward Outpatient Specialists: [ ] Inpatient Consults: [ ] PROBLEM LIST: 1. Acute hypoxemic respiratory failure, POA 2. Acute on chronic COPD exacerbation, POA 3. Sepsis: Source listed above, POA 4. SUSHANT on ATN, POA 5. Diabetes mellitus type 2 hyperglycemia, uncontrolled, POA CHRONIC PROBLEM LIST: HISTORY ESOPHAGEAL CANCER STATUS POST CHEMOTHERAPY VIA PORT-A-CATH RIGHT UPPER CHEST ASTHMA HPI: Sly Jaquez is an 89-year-old gentleman patient of Dr. Iglesia Ward, health history esophageal cancer status post chemotherapy, asthma, diabetes mellitus type 2, presents to the emergency department today, 09/08/2025 for generalized body weakness, nonproductive cough, and shortness of the breath. Onset of symptoms past for-three days progressively worsening. Patient had already seen by PCP on and visited ED Tuesday evening for the same complaint. Both times the patient received breathing treatments but no antibiotics. Generalized body weakness, dyspnea in a, and a week nonproductive cough progressively worsened. Vital signs: Temp 99.7, pulse 110, respirations 24, blood pressure 118/58, oxygen saturation 93% on room air FiO2 21. Laboratory results: WBC 15.7, hemoglobin 13.2, hematocrit 38.6, platelets 232, sodium 137, potassium 3.6, CO2 27, BUN 21 T2, creatinine 1.3, GFR 53, random blood glucose 252 and procal 0.22 Urine UA: Leukocyte esterase negative, nitrate negative, occult blood negative. ABG: PH 7.486, pCO2 32, PO2 51.8, bicarb 23.8 O2 saturation 90.2, base excess 1.0 Influenza a negative, influenza B negative, IPIQ-[id number]-Ag negative, group a strep rapid CXR one view: No acute cardiopulmonary pathology is evident. Patient was assessed in seen in the emergency department in [place]#12, present patient and family member were pleasant and conversant. The time of my assessment the patient has a week nonproductive cough, patient require supplemental oxygen, patient reports going to his primary care provider, then to the emergency department on Tuesday evening and had no relief of symptoms so re- presented today to the emergency department with a exacerbation of his symptoms. The patient will be admitted treated with gentle IV hydration after an IV bolus to address acute kidney injury on acute tubular necrosis. Acute on chronic exacerbation of COPD we will be addressed through antibiotics, breathing treatments, and supplemental oxygen.. Patient's home medications were reviewed and reconciled. PT we will be consulted to evaluate and treat the patient with any discharge recommendations. PLAN: Telemetry. Antibiotics: Ceftriaxone 2 g IV Q 24 hours and Zithromax 500 mg IV Q 24 hours Atrovent breathing treatments scheduled q.6 hours Mucinex 600 mg p.o. b.i.d. Incentive spirometer Aspiration precautions Diabetes mellitus type 2 managed with sliding scale regular insulin, checking hemoglobin A1c Reviewed and reconciled patient's home medications SUSHANT gentle IV hydration NS at 50 mL an hour x1 bag DVT prophylaxis heparin 5000 units sq bid GI prophylaxis Protonix 40 mg p.o. daily A.m. labs: CBC, CMP, Mag, phosphorus, calcium, PAST MEDICAL HX: see above PAST SURGICAL HX: noncontributory SOCIAL HISTORY: No tobacco, ETOH, or illicit drug use Coded Allergies: No Known Drug Allergies (Verified Allergy, Unknown, 07/18/18) REVIEW OF SYSTEMS: 12 point ROS reviewed with patient. Pertinent positives mentioned above. Other perry negative. PHYSICAL EXAM: GENERAL: alert, weak, awake oriented x 3 HEENT: EOMI, Sclera non icteric, moist mucosa NECK: Supple, no JVD, trachea midline LUNGS: Clear breath sounds bilaterally. No wheezes HEART: Regular rate and rhythm. Normal S1 and S2, without murmurs ABD: Abdomen soft, nontender. Bowel sounds present EXT: No clubbing cyanosis or edema NEURO: Alert and oriented to person, follows commands Vital Signs (last 8hr) Date Time Temp Pulse Resp B/P (MAP) Pulse Ox O2 Delivery O2 Flow Rate FiO2 09/08/25 16:00 97.9 68 18 143/61 96 Room Air 09/08/25 12:50 98.1 73 18 127/59 97 Room Air 09/08/25 12:21 98.8 77 18 114/55 98 Room Air* 0 21 09/08/25 11:39 70 20 N/Cannula Low lpm 5.0 40 09/08/25 11:36 70 20 09/08/25 11:02 74 18 104/52 100 Room Air* 0 21 09/08/25 09:43 98.2 88 20 106/50 98 Nasal Cannula* 2 28 LABS: Hematology Labs: Test 09/08/25 07:44 Range/Units White Blood Count 15.7 H 4.8-10.8 K/uL Red Blood Count 4.51 4.50-6.20 MIL/uL Hemoglobin 13.2 L 14.0-18.0 g/dL Hematocrit 38.6 L 42-54 % Mean Corpuscular Volume 85.6 79-99 fL Mean Corpuscular Hemoglobin 29.3 27.0-33.0 pg Mean Corpuscular Hemoglobin Concent 34.2 32.0-36.0 g/dL Red Cell Distribution Width 13.8 11.0-15.5 % Platelet Count 231 # 130-400 K/uL Mean Platelet Volume 10.2 7.5-10.5 fL Immature Granulocyte % (Auto) 0.7 0-1 % Neutrophils (%) (Auto) 83.1 H 40.0-77.0 % Lymphocytes (%) (Auto) 7.1 L 21.0-51.0 % Monocytes (%) (Auto) 8.7 3.0-13.0 % Eosinophils (%) (Auto) 0.1 0.0-8.0 % Basophils (%) (Auto) 0.3 0.0-5.0 % Neutrophils # (Auto) 13.1 H 1.8-7.7 K/uL Lymphocytes # (Auto) 1.1 1.0-4.8 K/uL Monocytes # (Auto) 1.4 H 0.1-1.0 K/uL Eosinophils # (Auto) 0.01 0.00-0.70 K/uL Basophils # (Auto) 0.04 0.00-0.20 K/uL Absolute Immature Granulocyte (auto 0.11 0-1 K/uL Nucleated Red Blood Cells 0.0 0.0-0.19 % White Cell Morphology Comment See comments Chemistry Labs: Test 09/08/25 16:59 09/08/25 07:44 Range/Units Whole Blood Glucose 226 H 70-110 MG/DL Sodium Level 137 136-145 mmol/L Potassium Level 3.6 3.5-5.1 mmol/L Chloride Level 99 L 101-111 mmol/L Carbon Dioxide Level 27 21-32 mmol/L Blood Urea Nitrogen 22 H 7-18 mg/dL Creatinine 1.3 0.5-1.3 mg/dL Glomerular Filtration Rate Calc 53 >90 mL/min Random Glucose 232 H 70-105 mg/dL Total Calcium 8.7 8.5-10.1 mg/dL Troponin I High Sensitivity 17 4-75 ng/L B-Type Natriuretic Peptide 207 H 0-100 pg/mL Procalcitonin 0.22 0.05-0.5 ng/mL DIAGNOSTICS / RADIOLOGY RESULTS: [ ] PLAN NEURO: Minimize central acting medications as possible. Maintain fall precautions, adequate lighting during the day PULMONARY: Supplemental 02 as needed. Maintain aspiration precautions at all times CARDIOVASCULAR: Follow hemodynamics. Vital signs per facility protocol GI & NUTRITION: Continue with nutritional support. Continue stool softeners and laxatives as needed. KIDNEYS & ELECTROLYTES: Strict monitoring of intake, output and overall fluid balance. Avoid nephrotoxic medications to the extent possible. Medications to be dosed according to renal function. Monitor electrolytes and replace as needed ENDOCRINE: Maintain blood glucose between 100-180 at all times. Hypoglycemia protocol in place INFECTIOUS DISEASE: Trend temperature, WBC and procalcitonin level Follow cultures, deescalate antibiotics as soon as possible. Panculture if new onset fever ONCOLOGY/HEMATOLOGY/COAGULATION: Monitor for s/s of bleeding Monitor hemoglobin, coagulation studies as needed SKIN: Pressure ulcer prevention per facility protocol Specialty mattress ORTHO/REHAB: Continue PT/OT Prophylaxis: Continue GI and DVT prophylaxis Code Status: Full Resuscitation Disposition: TBD Other: Total patient care time exceeds 35 minutes excluding all procedures. SMITH AHUMADA AGACNP Sep 08, 2025 18:05
[2025-09-08] MEDS: 0.9%NACL 1000ML 1,000 ML IV SCH (22:30)
--- NOTE | 2025-09-08 23:02 | NUR ---
heparin as per son and report pt has a history of hemophelia, heparin not given.
[2025-09-09] VITALS (11 sets, daily range): BP systolic 133–149; BP diastolic 55–71; PULSE 66–86; RESP 18–20; TEMP 98–98.8; O2SAT 93–96
[2025-09-09 05:53] LABS: IMMATURE GRANULOCYTE ABSOLUTE 0.10 K/uL (0-1); NUCLEATED RED BLOOD CELLS 0.0 % (0.0-0.19); PLATELET COUNT (AUTO) 190 K/uL (130-400); RED BLOOD CELL COUNT(AUTO) 4.34 MIL/uL (4.50-6.20); RED CELL DISTRIBUTION WIDTH 13.6 % (11.0-15.5); WHITE BLOOD COUNT (AUTO) 10.3 K/uL (4.8-10.8)
[2025-09-09 06:05] LABS: ASPARTATE AMINOTRANSFERASE 29.0 U/L (10-37); CREATININE 1.0 mg/dL (0.5-1.3); GLOMERULAR FILTR. RATE CALC 72.0 mL/min (>90); GLUCOSE,RANDOM 170.0 mg/dL (70-105); SODIUM SERUM 140.0 mmol/L (136-145); TOTAL PROTEIN, SERUM 6.4 g/dL (6.0-8.3); UREA NITROGEN, BLOOD 15.0 mg/dL (7-18)
[2025-09-09] MEDS: MULTIVITAMIN TABLET PO SCH (08:09)
[2025-09-09] MEDS: CHOLECALCIFEROL 50 MCG PO SCH (08:10)
--- NOTE | 2025-09-09 11:00 | NUR ---
Discussed with Carter Lane NP the heparin order and hx of hemophilia. 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
--- NOTE | 2025-09-09 12:08 | NUR ---
DCP: HOME sw met with pt who states he lives at home with his Kristen. Couple has no cell, please call grand ashley Hernandez [phone] or Laura Serna [phone]. Pt states he and live independently at home alone. Pt reports he remains independent of ll his ADLS, grand children assist wit transportation and as needed. Pt has no DME, provider or HH services. PCP is Hao Ward and uses [facility] for rx needs. Pt denies need for SNF, wants to return home at dc Addendum: 09/09/25 at 1212 by JEFF GUERRERO Amended: Links added.
--- NOTE | 2025-09-09 17:49 | DS ---
[facility] DISCHARGE SUMMARY Date Patient Seen: Sep 09, 2025 Time of Visit: 17:49 Supervising Physician: Dr. Janusz Winter Primary Care Physician: Dr. Iglesia Ward Outpatient Specialists: [ ] Inpatient Consults: [ ] PROBLEM LIST: 1. Acute hypoxemic respiratory failure, POA 2. Acute on chronic COPD exacerbation, POA 3. Sepsis: Source listed above, POA 4. SUSHANT on ATN, POA 5. Diabetes mellitus type 2 hyperglycemia, uncontrolled, POA CHRONIC PROBLEM LIST: HISTORY ESOPHAGEAL CANCER STATUS POST CHEMOTHERAPY VIA PORT-A-CATH RIGHT UPPER CHEST ASTHMA HOSPITAL COURSE: The patient was admitted to the hospital, treated for acute hypoxic respiratory failure with supplemental oxygen has been weaned off and does not require home O2. Additionally, patient was treated for acute on chronic COPD exacerbation, has a health history of asthma in the past, treated with IV antibiotics, patient's white blood cell count has trended down, patient has less of a nonproductive cough, patient has been evaluated with discharge recommendations by physical therapy, there are no new at this time patient will maintain using his walker at home, patient's oxygen saturations have been greater than 95% on room air, and patient will be transitioned to oral antibiotic therapy for a few days and recommended to follow up with primary care provider Dr. Iglesia Ward within 2-3 days for a wellness check. Patient and family members are in agreement with the plan, patient is medically stable afebrile and can be discharged to home with family care. HPI (per admitting provider) Sly Jaquez is an 89-year-old gentleman patient of Dr. Iglesia Ward, health history esophageal cancer status post chemotherapy, asthma, diabetes mellitus type 2, presents to the emergency department today, 09/08/2025 for generalized body weakness, nonproductive cough, and shortness of the breath. Onset of symptoms past for-three days progressively worsening. Patient had already seen by PCP on and visited ED Tuesday evening for the same complaint. Both times the patient received breathing treatments but no antibiotics. Generalized body weakness, dyspnea in a, and a week nonproductive cough progressively worsened. Vital signs: Temp 99.7, pulse 110, respirations 24, blood pressure 118/58, oxygen saturation 93% on room air FiO2 21. Laboratory results: WBC 15.7, hemoglobin 13.2, hematocrit 38.6, platelets 232, sodium 137, potassium 3.6, CO2 27, BUN 21 T2, creatinine 1.3, GFR 53, random blood glucose 252 and procal 0.22 Urine UA: Leukocyte esterase negative, nitrate negative, occult blood negative. ABG: PH 7.486, pCO2 32, PO2 51.8, bicarb 23.8 O2 saturation 90.2, base excess 1.0 Influenza a negative, influenza B negative, [id number]-[id number]-Ag negative, group a strep rapid CXR one view: No acute cardiopulmonary pathology is evident. Patient was assessed in seen in the emergency department in [place]#12, present patient and family member were pleasant and conversant. The time of my assessment the patient has a week nonproductive cough, patient require supplemental oxygen, patient reports going to his primary care provider, then to the emergency department on Tuesday evening and had no relief of symptoms so re- presented today to the emergency department with a exacerbation of his symptoms. The patient will be admitted treated with gentle IV hydration after an IV bolus to address acute kidney injury on acute tubular necrosis. Acute on chronic exacerbation of COPD we will be addressed through antibiotics, breathing treatments, and supplemental oxygen.. Patient's home medications were reviewed and reconciled. PT we will be consulted to evaluate and treat the patient with any discharge recommendations. ACTIVE PROBLEM LIST FOR THE HOSPITALIZATION: 1. Acute hypoxemic respiratory failure, POA, treated 2. Acute on chronic COPD exacerbation, POA treated and resolved 3. Sepsis: Source listed above, POA treated and resolved micafungin 4. SUSHANT on ATN, POA treated and resolved 5. Diabetes mellitus type 2 hyperglycemia, uncontrolled, POA CHRONIC PROBLEMS: continue previous management per PCP unless otherwise indicated HISTORY ESOPHAGEAL CANCER STATUS POST CHEMOTHERAPY VIA PORT-A-CATH RIGHT UPPER CHEST ASTHMA DIABETES MELLITUS TYPE 2 The patient was treated for the following problems: CONTROL ELECTRICIAN FINDINGS/RECOMMENDATIONS: [ ] PROCEDURES: as mentioned above DISCHARGE MEDICATIONS: Doxycycline 100 mg p.o. b.i.d. for four days, 8 tablets Mucinex 600 mg p.o. b.i.d. for four days, eight tablets Pt hemodynamically stable and afebrile at time of discharge. PCP notified of patients admission, hospital course and discharge. PHYSICAL EXAM: GENERAL: alert, weak, awake oriented x 3 HEENT: EOMI, Sclera non icteric, moist mucosa NECK: Supple, no JVD, trachea midline LUNGS: Clear breath sounds bilaterally. No wheezes HEART: Regular rate and rhythm. Normal S1 and S2, without murmurs ABD: Abdomen soft, nontender. Bowel sounds present EXT: No clubbing cyanosis or edema NEURO: Alert and oriented to person, follows commands FOLLOW-UP: Dr. Iglesia Ward Follow-up with PCP in 2-3 days RECOMMENDATIONS: See Discharge Instructions This case was seen and discussed with my supervising physician. More than 50 minutes spent on discharge process, including evaluation of the patient, discussion with nursing staff, medication reconciliation and follow-up appointments SMITH AHUMADA [facility] Sep 09, 2025 17:49
--- NOTE | 2025-09-09 18:26 | NUR ---
PATIENT ALERT AND ORIENTED WITH SON AT BEDSIDE BEING DISCHARGED HOME. PRESCRIPTION FOR MUCINEX AND DOXYCYCLINE GIVEN, MEDICATIONS EXPLAINED INCLUDING SIDE EFFECTS. PATIENT TO CONTINUE ALL HOME MEDICATIONS. EDUCATED TO FOLLOW UP WITH PCP 2-3 DAYS. IVX2 REMOVED WITHOUT COMPLICATIONS. ALL QUESTIONS ANSWERED, PATIENT AND SON VERBALIZED COMPLETE UNDERSTANDING. FAMILY GATHERED ALL BELONGINGS AND TOOK AT DISCHARGE.
== END 2025-09-09 18:30 | disposition home or self-care (01) | DRG 871 ==
LOC: EDH 07:32 → EDHIP 09:05 → 4DH 12:50
PROVIDERS: ADMIT Internal Medicine Pulmonary Disease; ATTEND Internal Medicine Pulmonary Disease
DX: A41.9 Sepsis, unspecified organism (principal); J96.01 Acute respiratory failure with hypoxia; N17.0 Acute kidney failure with tubular necrosis; J44.1 Chronic obstructive pulmonary disease with (acute) exacerbation; E11.65 Type 2 diabetes mellitus with hyperglycemia; Z79.4 Long term (current) use of insulin; Z85.01 Personal history of malignant neoplasm of esophagus; Z92.21 Personal history of antineoplastic chemotherapy
CPT/HCPCS: 36415; 36600; 71045; 80048; 80053; 81001; 82435; 82803; 82947; 82948; 83036; 83605; 83735; 83880; 84132; 84145; 84295; 84484; 85018; 85025; 87420; 87426; 87804; 87880; 93005; 94640; 94664; 99291; G0378; J0456; J0696; J1644; J1815; J7030; J7120